=== PATIENT | male | born 1955 | race Caucasian/White ===

== ENCOUNTER 2020-01-17 02:26 | Outpatient (CLI) | payer OTHER, SELFPAY ==
[2020-01-17 17:02] LABS: SARS-CoV-2 RNA PCR Negative
== END 2020-01-17 02:27 | disposition home or self-care (01) ==
LOC: ANHCOVIDDT 02:26
PROVIDERS: PCP Internal Medicine; Visit Provider Internal Medicine Gastroenterology
DX: Z01.812 Encounter for preprocedural laboratory examination (principal); Z11.59 Encounter for screening for other viral diseases
CPT/HCPCS: 87635; C9803; U0003

== ENCOUNTER 2020-01-19 00:17 | Day surgery (SDC) | payer OTHER, SELFPAY ==
[2020-01-11 10:49] VITALS: BMI 37.3
--- NOTE | 2020-01-19 07:21 | P.HP_ITS ---
History of Present Illness History of Present Illness Consent: Risks, benefits, and alternatives have been discussed and questions answered. Patient agrees to proceed with procedure. Chief complaint: Neoplasm Screening Narrative: Loc Celestin is a 64 year old W male undergoing some screening colonoscopy secondary history of multiple colonic polyps removed a year ago. There are moderate size serrated adenoma removed with saline cushion of piecemeal fashion being re-evaluated for could confirmation of complete removal. Patient is asymptomatic no family history of colon cancer. [facility], [facility] Past Medical History Medical History (Updated 01/19/20 @ 07:27 by Justin Chavez MD) Asthma Diabetes mellitus Dyslipidemia Hypertension Surgical History Surgical History (Updated 01/19/20 @ 07:27 by Justin Chavez MD) Status post laser cataract surgery of both eyes Family History Family History (Updated 11/29/09 @ 10:21 by DOCTOR UNKNOWN) Other Family history of arthritis Family history of cardiovascular disease Social History Social History Years smoked: 30 Smoking status: Current every day smoker Tobacco type: cigarettes Second hand tobacco smoke exposure: Yes Alcohol intake: current Drinks per week: 50 Substance use: never Substance use type: does not use Living arrangements: with family Spiritual care concerns: No Meds Home Medications and Allergies Home Medications Medication Instructions Recorded Confirmed Type aspirin [Aspirin Low Dose] 81 mg PO DAILY 01/11/20 01/11/20 History levothyroxine 75 mcg PO DAILY 01/11/20 01/11/20 History lisinopril 20 mg PO DAILY 01/11/20 01/11/20 History metformin 500 mg PO BID 01/11/20 01/11/20 History [id number] palm-min 17 2 cap PO DAILY 01/11/20 01/11/20 History [Prostate Therapy] rosuvastatin 40 mg PO DAILY 01/11/20 01/11/20 History tadalafil 20 mg PO PRN PRN 01/11/20 01/11/20 History testosterone cypionate 200 mg SUBCUT [id number] 01/11/20 01/19/20 History umeclidinium-vilanterol [Anoro 1 inh INHALATION DAILY 01/11/20 01/11/20 History Ellipta] Allergies Allergy/AdvReac Type Severity Reaction Status Date / Time No Known Drug Allergies Allergy Mild Verified 07/01/16 17:59 Exam Const: Orientation/consciousness: patient oriented x3 Resp: Auscultation: clear to auscultation bilaterally Cardio: Rate: regular rate Rhythm: regular rhythm Heart sounds: no murmurs GI: GI Palp: Yes Soft to palpation, No Tenderness to palpation present (GI), Yes No hepatosplenomegaly present and No Palpable mass present Auscultation: normal bowel sounds Neuro: General: patient oriented x3 and no focal motor deficits Extrem: General: no pedal edema Assessment and Plan Additional Plan screening colonoscopy secondary history of multiple colonic polyps
[2020-01-19 07:28] VITALS: BP 159/94; PULSE 115; RESP 18; TEMP 36.5; O2SAT 96
[2020-01-19] MEDS: LACTATED RINGERS 1,000 ML 150 ML IV CONT (07:45)
[2020-01-19 07:47] LABS: Glucose Point of Care 160 (65-105)
--- NOTE | 2020-01-19 08:01 | WPDANESEPPF ---
Anes - Initial Pre Proc Eval Procedure: Operation Date: 01/19/20 08:30 Proposed Procedures p Screening Colonoscopy - Justin Chavez MD Date/Time: 01/19/20 08:01 Surgeon: Justin Chavez MD Pre Op Diagnosis: Neoplasm Screening Patient Data Age: 64 Gender: M Height: 1.78 m Weight: 119 kg Last Vital Signs Temp 36.5 C 01/19/20 07:28 Pulse 115 H 01/19/20 07:28 Resp 18 01/19/20 07:28 BP 159/94 H 01/19/20 07:28 Pulse Ox 96 01/19/20 07:28 Allergies Allergy/AdvReac Type Severity Reaction Status Date / Time No Known Drug Allergies Allergy Mild Verified 07/01/16 17:59 Home Medications Medication Instructions Recorded Confirmed Type aspirin [Aspirin Low Dose] 81 mg PO DAILY 01/11/20 01/19/20 History levothyroxine 75 mcg PO DAILY 01/11/20 01/11/20 History lisinopril 20 mg PO DAILY 01/11/20 01/11/20 History metformin 500 mg PO BID 01/11/20 01/11/20 History [id number] palm-min 17 2 cap PO DAILY 01/11/20 01/11/20 History [Prostate Therapy] rosuvastatin 40 mg PO DAILY 01/11/20 01/11/20 History tadalafil 20 mg PO PRN PRN 01/11/20 01/11/20 History testosterone cypionate 200 mg SUBCUT [id number] 01/11/20 01/19/20 History umeclidinium-vilanterol [Anoro 1 inh INHALATION DAILY 01/11/20 01/11/20 History Ellipta] Laboratory Tests 01/19/20 07:44 POC Capillary Glucose 160 mg/dl H mg/dl (65-105) Patient hx anesthesia problems: none Family hx anesthesia problems: none PMFSH Past Medical History Medical History (Updated 01/19/20 @ 08:02 by Kolton Simon MD) Asthma COPD (chronic obstructive pulmonary disease) Diabetes mellitus Dyslipidemia Hypertension Surgical History Surgical History (Updated 01/19/20 @ 07:27 by Justin Chavez MD) Status post laser cataract surgery of both eyes Family History Family History (Updated 07/22/10 @ 10:21 by DOCTOR UNKNOWN) Other Family history of arthritis Family history of cardiovascular disease Social History Social History Years smoked: 30 Smoking status: Current every day smoker Tobacco type: cigarettes Second hand tobacco smoke exposure: Yes Alcohol intake: current Drinks per week: 50 Substance use: never Substance use type: does not use Living arrangements: with family Spiritual care concerns: No Anes - Eval Final PreProcedure Day of Procedure 01/19/20 08:01 Informed Consent: The patient's anesthetic plan and its attendant risks and benefits were discussed with the patient/family/POA. Questions were solicited and answers provided to the satisfaction of the patient/family/POA.
[2020-01-19] MEDS: SIMETHICONE ORAL SUSPENSION 20 MG/0.3 ML 30 ML BOTTLE 0.6 ML IRRIGATION (08:20)
[2020-01-19 08:45] VITALS: BP 121/73; PULSE 91; RESP 28; O2SAT 93
[2020-01-19 08:55] VITALS: BP 128/83; PULSE 92; RESP 26; O2SAT 92
[2020-01-19 09:05] VITALS: BP 143/100; PULSE 92; RESP 23; O2SAT 99
[2020-01-19 09:11] VITALS: BP 150/109; PULSE 88; RESP 26; O2SAT 98
--- NOTE | 2020-01-19 09:14 | SUR.PHASEII ---
pts bp high during post op. dr oconnell notified, pt had not taken any bpmed this am. instructed to take as soon as he gets home. verbalized understanding.
== END 2020-01-19 09:23 | disposition home or self-care (01) ==
PROVIDERS: PCP Internal Medicine; Visit Provider Internal Medicine Gastroenterology
PROC: 0DJD8ZZ Inspection of Lower Intestinal Tract, Via Natural or Artificial Opening Endoscopic (ICD-10-PCS; CPT 45378; principal; 2020-01-19 08:30)
DX: Z12.11 Encounter for screening for malignant neoplasm of colon (principal); D12.0 Benign neoplasm of cecum; D12.2 Benign neoplasm of ascending colon; K63.5 Polyp of colon; K64.8 Other hemorrhoids; I10 Essential (primary) hypertension; E78.5 Hyperlipidemia, unspecified; J44.9 Chronic obstructive pulmonary disease, unspecified; E11.9 Type 2 diabetes mellitus without complications; Z79.84 Long term (current) use of oral hypoglycemic drugs; Z79.82 Long term (current) use of aspirin; F17.210 Nicotine dependence, cigarettes, uncomplicated
CPT/HCPCS: 45385; 45384; 87635; 88305; C9803; J2704; J7120; U0003